=== PATIENT | female | born 1965 | race Caucasian/White ===

== ENCOUNTER → 2017-09-01 | Emergency (ER) | payer OTHER ==
[~2017-09-01] VITALS: Ht 170.2 cm; Wt 74.8 kg
[~2017-09-01] MED LIST: METFORMIN HCL500 MG
== END | disposition left against medical advice (07) ==
LOC: ER 16:22
DX: Z53.20 Procedure and treatment not carried out because of patient's decision for unspecified reasons (principal)

== ENCOUNTER → 2018-11-05 | Emergency (ER) | payer OTHER ==
[~2018-11-05] VITALS: Ht 170.2 cm; Wt 73.0 kg
== END | disposition home or self-care (01) ==
LOC: ER 08:28
DX: N20.0 Calculus of kidney (principal); R10.11 Right upper quadrant pain

== ENCOUNTER 2024-06-10 05:33 | Emergency (ER) | payer OTHER ==
[~2024-06-10] VITALS: Ht 170.2 cm; Wt 63.5 kg
[~2024-06-10 05:33] MED LIST changes: +DULCOLAX STOOL100 M1 PO
[2024-06-10] MEDS ORDERED: METFORMIN HCL1000 M3 PO (05:49)
[2024-06-10] MEDS ORDERED: COZAAR25 MG PO (05:49)
[2024-06-10] MEDS ORDERED: ORPHENADRINE CITRATE 30 MG/ML AMPUL IM STA (07:00)
[2024-06-10] MEDS ORDERED: KETOROLAC TROMETHAMINE 60 MG VIAL IM STA (07:00)
[2024-06-10 07:45] LABS: HEMATOCRIT 36.7 % (36.0-45.00); HEMOGLOBIN 12.6 g/dL (12.0-15.00); MEAN CELL VOLUME 93.2 fL (80.00-100.00); MEAN CORPUSCULAR HGB CONC 34.3 g/dl (32.0-36.0); PLATELET COUNT 328 K/uL (150-450); RED BLOOD COUNT 3.94 M/uL (4.00-6.00); RED CELL DISTRIBUTION WIDTH 12.7 % (11.5-14.5)
[2024-06-10 07:59] LABS: PH,URINE 6.5 (5.0-8.0); URINE APPEARANCE Clear; URINE BILIRRUBIN Small (NEGATIVE); URINE BLOOD Negative; URINE COLOR Orange; URINE GLUCOSE Negative (NEGATIVE); URINE KETONE Negative (NEGATIVE); URINE LEUKOCYTE Small; URINE NITRATE Positive; URINE PROTEIN Negative (NEGATIVE)
[2024-06-10 08:01] LABS: URINE BACTERIA 1212.9 uL (0.0-1933); URINE EPITHELIAL CELLS 29.9 uL (0.0-38.8); URINE RBC 51.2 uL (0.0-20.8); URINE WBC 4.4 uL (0.0-23.2)
[2024-06-10 08:12] LABS: CALCIUM 9.7 mg/dL (8.5-10.1); CREATININE SERUM 0.66 mg/dL (0.55-1.02); GFR 91.98; POTASSIUM 4.04 mEq/L (3.5-5.1)
[2024-06-10] MEDS ORDERED: CEPHALEXIN500 M1 PO (08:32)
[2024-06-10] MEDS ORDERED: CEFTRIAXONE SODIUM 1,000 MG VIAL IM ONE (08:45)
== END 2024-06-10 11:17 | disposition home or self-care (01) ==
LOC: ER 05:35
PROVIDERS: General Practice
DX: N39.0 Urinary tract infection, site not specified (principal); M54.50 Low back pain, unspecified; I10 Essential (primary) hypertension; E11.9 Type 2 diabetes mellitus without complications; Z79.84 Long term (current) use of oral hypoglycemic drugs

== ENCOUNTER → 2024-06-18 | Emergency (ER) | payer OTHER ==
[~2024-06-18] VITALS: Ht 165.1 cm; Wt 68.0 kg
[~2024-06-18] MED LIST changes: +CEPHALEXIN500 M1 PO; +COZAAR25 MG PO; +METFORMIN HCL1000 M3 PO
== END | disposition left against medical advice (07) ==
LOC: ER 00:30
DX: Z53.21 Procedure and treatment not carried out due to patient leaving prior to being seen by health care provider (principal)